=== PATIENT | male | born 1960 | race Caucasian/White ===

== ENCOUNTER 2017-01-18 18:55 | Outpatient (CLI) | payer BC, OTHER | END 2017-01-18 18:56 | disposition EMS.NT | LOC: EMS 18:55 | PROVIDERS: ATTEND Surgery | DX: R42 Dizziness and giddiness (principal); R51 Headache; R11.2 Nausea with vomiting, unspecified ==

== ENCOUNTER 2017-01-18 19:53 | Emergency (ER) | payer BC, OTHER ==
[2017-01-18] MEDS ORDERED: SODIUM CHLORIDE 0.9% 1,000 ML IV ONE (20:13)
[2017-01-18] MEDS ORDERED: PROCHLORPERAZINE INJ 10 MG in SODIUM CHLORIDE 0.9% 50 ML IV ONE (20:14)
[2017-01-18] MEDS ORDERED: diphenhydrAMINE INJ 50 MG/ML VIAL IVP STA (20:14)
--- NOTE | 2017-01-18 20:18 | ED Physician Documentation ---
History of Present Illness - Stated complaint Stated Complaint: [place]/VOMITING - Chief complaint Chief Complaint: Neuro - Additonal information Additional information: Patient is a 57-year-old man with history of hypertension and osteoarthritis of the right knee. He also has a distant history of migraine headaches. He presents with a complaint of a global headache nausea and vomiting that started acutely a couple hours ago. He did have the right knee injected with what sounds like hyaluronic acid approximately 4 hours ago. He denies any pruritic rash and has really no history of allergic reactions in the past. He denies chest pain or shortness of breath and his nausea and vomiting are dissipating. He has no chest pain, abdominal pain, constipation diarrhea or lower urinary symptoms. He felt a little unwell today but yesterday he felt fine. Review of systems: For pertinent positive and negatives in the review of systems please see history of present illness. Otherwise all other systems have been reviewed and are negative. Dragon disclaimer: Parts of this medical record were created using voice recognition technology. Because of the inherent limitations of this system occasional same sounding word substitutions do occur and persist despite proofreading. Please read the document for context. Review of Systems Unable to obtain: Uncooperative Constitutional: denies: Fever, Chills, Myalgias Eyes: denies: Loss of vision Ears: denies: Loss of hearing, Drainage/discharge Cardiac: denies: Chest pain / pressure, Palpitations Respiratory: denies: Dyspnea, Cough GI: reports: Nausea, Vomiting. denies: Abdominal Pain, Abdominal Swelling : denies: Dysuria Skin: denies: Rash, Lesions, Abrasion (s) Musculoskeletal: denies: Neck pain, Back pain, Extremity pain, Joint pain Neurologic: reports: Generalized weakness. denies: Numbness PD PAST MEDICAL HISTORY - Past Medical History Past Medical History: Yes Cardiovascular: Hypertension Musculoskeletal: Osteoarthritis - Past Surgical History Past Surgical History: No - Present Medications Home Medications: Ambulatory Orders Medication Instructions Recorded Confirmed Lisinopril 01/18/17 hydroCHLOROthiazide [Hydrodiuril] 01/18/17 - Allergies Allergies/Adverse Reactions: Allergies Allergy/AdvReac Type Severity Reaction Status Date / Time No Known Drug Allergies Allergy Verified 01/18/17 20:01 - Social History Does the pt smoke?: No Smoking Status: Never smoker Does the pt drink ETOH?: No Does the pt have substance abuse?: No - Immunizations Immunizations are current?: Yes PD ED PE NORMAL - General General: Alert and oriented X 3, Well developed/nourished, Other (Well- appearing male lying in the bed in no apparent distress he is awake and alert and answers questions appropriately pupils equal round reactive to light oromucosa moist) - HEENT HEENT: Atraumatic, PERRL, EOMI - Neck Neck: Supple, no meningeal sign, No JVD, No bruit - Cardiac Cardiac: RRR, No murmur, No gallop, No rub - Respiratory Respiratory: No respiratory distress, Clear bilaterally - Abdomen Abdomen: Normal bowel sounds, Soft, Non tender, Non distended - Derm Derm: Normal color, No rash, Other (Mildly diaphoretic) - Extremities Extremities: No deformity, No tenderness to palpate - Neuro Neuro: Alert and oriented X 3, machine sole leveler 2-12 intact, No motor deficit, No sensory deficit - Psych Psych: Normal mood, Normal affect Results - Vitals Vitals: Vital Signs - 24 hr 01/18/17 01/18/17 01/18/17 19:57 21:24 23:12 Temperature 36.1 C L Heart Rate 78 88 83 Respiratory 16 12 16 Rate Blood Pressure 144/91 H 129/75 117/72 O2 Saturation 100 98 96 Oxygen O2 Source Room air - Labs Labs: Laboratory Tests 01/18/17 01/18/17 01/18/17 20:02 20:05 20:05 WBC 14.1 H RBC 4.42 L Hgb 13.9 L Hct 40.3 L MCV 91.2 MCH 31.4 H MCHC 34.5 RDW 13.5 Plt Count 271 MPV 7.2 L Neut # 11.7 H Lymph # 1.5 Grady # 0.7 Eos # 0.1 Baso # 0.1 Absolute Nucleated RBC 0.00 Nucleated RBCs 0.0 Sodium 137 Potassium 4.0 Chloride 100 L Carbon Dioxide 27 Anion Gap 10.0 BUN 27 H Creatinine 1.2 Estimated GFR (MDRD) 63 L Glucose 121 H POC Whole Bld Glucose 117 H Calcium 9.5 Total Bilirubin 0.5 AST 39 ALT 48 Alkaline Phosphatase 93 Troponin I Total Protein 7.5 Albumin 4.5 Globulin 3.0 Albumin/Globulin Ratio 1.5 Lipase 33 Urine Color Urine Clarity Urine pH Ur Specific Tucker Urine Protein Urine Glucose (UA) Urine Ketones Urine Occult Blood Urine Nitrite Urine Bilirubin Urine Urobilinogen Ur Leukocyte Esterase Ur Microscopic Review Urine Culture Comments 01/18/17 01/18/17 20:05 22:00 WBC RBC Hgb Hct MCV MCH MCHC RDW Plt Count MPV Neut # Lymph # Grady # Eos # Baso # Absolute Nucleated RBC Nucleated RBCs Sodium Potassium Chloride Carbon Dioxide Anion Gap BUN Creatinine Estimated GFR (MDRD) Glucose POC Whole Bld Glucose Calcium Total Bilirubin AST ALT Alkaline Phosphatase Troponin I < 0.04 Total Protein Albumin Globulin Albumin/Globulin Ratio Lipase Urine Color YELLOW Urine Clarity CLEAR Urine pH 5.0 Ur Specific Tucker >=1.030 H Urine Protein NEGATIVE Urine Glucose (UA) NEGATIVE Urine Ketones NEGATIVE Urine Occult Blood NEGATIVE Urine Nitrite NEGATIVE Urine Bilirubin NEGATIVE Urine Urobilinogen 0.2 (NORMAL) Ur Leukocyte Esterase NEGATIVE Ur Microscopic Review NOT INDICATED Urine Culture Comments NOT INDICATED PD MEDICAL DECISION MAKING - ED course ED course: Patient is a 57-year-old male who presents with a complaint of headache, nausea , diaphoresis after receiving a hyaluronic acid injection in the right knee. He was alert and oriented had a nonfocal neurologic exam. An IV line was started he is given fluids and anti-migrainous medications and improved significantly. CT scan of the head was done and shows no evidence of any obvious intracranial abnormality. EKG shows normal sinus rhythm with normal [place] , QRS and QT interval. There is no ST segment elevation, depression or T-wave inversion. Blood work demonstrates white blood cell count of 14,000 however there is no clinical Evidence of infection anywhere. Blood work and urine suggest mild dehydration which is remedied by 1 L of normal saline. At this time the patient looks and feels better. I doubt that his symptoms are related to allergic reaction based on what I saw. I think the injection in the right knee and his symptoms were just temporally related. Possibly more likely this is related to acute migrainous headache perhaps he might be coming down with a viral syndrome. At this point in time I do not think there is anything emergent going on and get asked him to stay hydrated watch for signs and symptoms and of infection and follow-up with his physician when he gets back into town. Disposition: To home Clinical impression: 1. Acute headache 2.Doubt allergic reaction to hyaluronic acid injection Departure - Departure Condition: Good Instructions: ED Cephalgia Unspecified Follow-Up: Terry Camarillo MD [Primary Care Provider] -
[2017-01-18 20:20] LABS: BASOPHILS # (AUTO) 0.1 10^3/uL (0.0-0.1); BASOPHILS % (AUTO) 0.5 %; EOSINOPHILS # (AUTO) 0.1 10^3/uL (0.0-0.7); EOSINOPHILS % (AUTO) 0.5 %; HCT - HEMATOCRIT 40.3 % (42.0-52.0); HGB - HEMOGLOBIN 13.9 g/dL (14.0-18.0); LYMPHOCYTES # (AUTO) 1.5 10^3/uL (1.5-3.5); MEAN CORPUSCULAR HEMOGLOBIN 31.4 pg (27.0-31.0); MEAN CORPUSCULAR HGB CONC 34.5 g/dL (32.0-36.0); MEAN CORPUSCULAR VOLUME 91.2 fL (80.0-94.0); MEAN PLATELET VOLUME 7.2 fL (7.4-11.4); MONOCYTES # (AUTO) 0.7 10^3/uL (0.0-1.0); MONOCYTES % (AUTO) 5.1 %; NEUTROPHILS # (AUTO) 11.7 10^3/uL (1.5-6.6); NEUTROPHILS % (AUTO) 82.9 %; RED BLOOD COUNT 4.42 10^6/uL (4.70-6.10); RED CELL DISTRIBUTION WIDTH 13.5 % (12.0-15.0); UNCORRECTED WHITE BLOOD COUNT 14.1 x10^3/uL; WHITE BLOOD COUNT 14.1 x10^3/uL (4.8-10.8)
[2017-01-18] MEDS ORDERED: diphenhydrAMINE INJ 50 MG/ML VIAL ONE (20:20)
[2017-01-18] MEDS ORDERED: PROCHLORPERAZINE 10 MG/2 ML VIAL ONE (20:21)
[2017-01-18 20:27] LABS: ALBUMIN/GLOBULIN RATIO 1.5 (1.0-2.2); BILIRUBIN,TOTAL 0.5 mg/dL (0.2-1.0); CALCIUM 9.5 mg/dL (8.5-10.3); CREATININE 1.2 mg/dL (0.6-1.2); TOTAL PROTEIN 7.5 g/dL (6.7-8.2)
--- NOTE | 2017-01-18 21:10 | CT Preliminary Report ---
Exam: CT Head W/O IMPRESSION: Normal head CT. [facility] SITE ID: [id number]
--- NOTE | 2017-01-18 21:13 | CT Report ---
EXAM: CT HEAD EXAM DATE: 01/18/2017 08:47 PM. CLINICAL HISTORY: Acute headache nausea and vomiting. COMPARISON: None. TECHNIQUE: Multiaxial CT images were obtained from the foramen magnum to the vertex. IV contrast: Non e. Reformats: Coronal. In accordance with CT protocol optimization, one or more of the following dose reduction techniques w ere utilized for this exam: automated exposure control, adjustment of mA and/or KV based on patient s ize, or use of iterative reconstructive technique. FINDINGS: Parenchyma: No intraparenchymal hemorrhage. No evidence of mass, midline shift, or CT findings of inf arction. Roy-white differentiation is distinct. Extraaxial Spaces: Normal for age. No subdural or epidural collections identified. Ventricles: Normal in size and position. Sinuses: Imaged paranasal sinuses, orbits, and mastoids show no significant abnormality. Bones: No evidence of fracture or calvarial defect. Other: None. IMPRESSION: Normal head CT. [facility] Referring Provider Line: [phone] SITE ID: [id number]
[2017-01-18 22:09] LABS: BILIRUBIN,URINE NEGATIVE (NEGATIVE)
[2017-01-18 22:18] LABS: UA CHARGE (STRIP ONLY) YES; UR CULTURE IF IND NOT INDICATED
[2017-01-18 23:13] VITALS: BP 117/72
== END 2017-01-19 00:08 | disposition home or self-care (01) ==
LOC: ED 19:53
DX: R51 Headache (principal); R11.2 Nausea with vomiting, unspecified; I10 Essential (primary) hypertension; M17.11 Unilateral primary osteoarthritis, right knee
CPT/HCPCS: 36415; 70450; 80053; 81001; 81003; 83690; 84484; 85025; 87086; 93005; 96374; 96375; 99284